=== PATIENT | female | born 1975 | race African-American/Black ===

== ENCOUNTER 2016-09-24 13:10 | Emergency (ER) | payer OTHER ==
[2016-09-24 13:14] VITALS: BP 103/48; PULSE 60; TEMP 98; BMI 38.7
--- NOTE | 2016-09-24 13:46 | PDOC ---
History of Present Illness - General Chief Complaint: Injury Stated Complaint: SWOLLEN LEGS Time Seen by Provider: 09/24/16 13:18 History Source: Patient Exam Limitations: No Limitations - History of Present Illness Initial Comments: 09/24/16 13:42 41 y/o female with c/o lower extremity edema for the past 3 days worsened by the evening hours without pain, sensory changes, shortness of breath, skin discoloration, or temperature change. Patient states is not a diabetic or history of hypertension. Patient also states has not tried any interventions including antiembolic stocking or elevation. Patient states has not had this in the past and denies any pain. Patient states did fall about 1 week ago scraping her right knee but denies any discomfort to the knee or injury to ankle Timing/Duration: intermittent Severity: mild Associated Symptoms: reports: denies symptoms Past History - Travel Traveled outside of the country in the last 30 days: No - Past Medical History Allergies/Adverse Reactions: Allergies Allergy/AdvReac Type Severity Reaction Status Date / Time No Known Allergies Allergy Verified 09/24/16 13:12 Home Medications: Ambulatory Orders Naproxen [Naprosyn -] 500 mg PO BID #14 tablet 05/26/15 Cardiac Disorders: Yes (bradycardia) GI Disorders: Yes (GERD.OBESITY.) Suicide Attempt (Hx): No - Surgical History Abdominal Surgery: Yes (RT OVARY REMOVAL/HERNIA REPAIR) - Psycho/Social/Smoking Cessation Hx Anxiety: No Suicidal Ideation: No Smoking Status: Yes Smoking History: Current every day smoker Have you smoked in the past 12 months: Yes Number of Cigarettes Smoked Daily: 5 Information on smoking cessation initiated: No 'Breaking Loose' booklet given: 04/08/15 Hx Alcohol Use: No Drug/Substance Use Hx: No Substance Use Type: None Hx Substance Use Treatment: No Patient Lives Alone: No Lives with/in: spouse/SO Review of Systems - Review of Systems Able to Perform ROS?: Yes Constitutional: No: Symptoms Reported Respiratory: No: Symptoms reported Cardiac (ROS): Yes: Edema : No: Symptoms Reported Musculoskeletal: No: Symptoms Reported Integumentary: No: Symptoms Reported Neurological: No: Symptoms reported *Physical Exam - Vital Signs Last Vital Signs Temp Pulse Resp BP Pulse Ox 98.0 F 60 18 103/48 99 09/24/16 13:11 09/24/16 13:11 09/24/16 13:11 09/24/16 13:11 09/24/16 13:11 - Physical Exam General Appearance: Yes: Nourished, Appropriately Dressed. No: Apparent Distress HEENT: negative: Pale Conjunctivae Respiratory/Chest: positive: Lungs Clear, Normal Breath Sounds. negative: Respiratory Distress, Accessory Muscle Use Cardiovascular: positive: Regular Rhythm, Regular Rate. negative: Murmur Extremity: positive: Normal Capillary Refill, Normal Range of Motion, Pedal Edema ( bilateral1+ pitting ). negative: Coldness, Calf Tenderness Integumentary: positive: Normal Color, Warm, Moist Neurologic: positive: Motor Strength 5/5 (ambulatory) Medical Decision Making - Medical Decision Making 09/24/16 13:47 Pt with c/o of BLE edema for the past 3 days worsened by evening hours. Patient exam appears to have dependent edema. Patient diet reviewed and states is high in salts with minimal water intake. I do recommend the patient to elevate her feet whenever she can, decrease her salt and increase her water intake. *DC/Admit/Observation/Transfer Diagnosis at time of Disposition: Dependent edema - Discharge Dispostion Disposition: HOME Condition at time of disposition: Good - Referrals Referrals: Wen Morataya MD [Primary Care Provider] - - Patient Instructions Printed Discharge Instructions: DI for Dependent Edema Additional Instructions: Please elevate your extremities and decrease her salt intake. Also increase her fluid intake and if symptoms continue please follow up with your primary care physician.
== END 2016-09-24 14:05 | disposition home or self-care (01) ==
LOC: JERFT 13:10
DX: R60.0 Localized edema (principal); K21.9 Gastro-esophageal reflux disease without esophagitis; E66.09 Other obesity due to excess calories; Z68.38 Body mass index [BMI] 38.0-38.9, adult
CPT/HCPCS: 99281-25

== ENCOUNTER 2017-08-03 12:25 | Emergency (ER) | payer OTHER ==
[2017-08-03 12:30] VITALS: BP 110/67; PULSE 81; TEMP 98; BMI 39.2
--- NOTE | 2017-08-03 12:47 | PDOC ---
History of Present Illness - General Chief Complaint: Sore Throat Stated Complaint: SORE THROAT Time Seen by Provider: 08/03/17 12:31 History Source: Patient Exam Limitations: No Limitations - History of Present Illness Initial Comments: 08/03/17 12:42 Best Contact: PCP: N/A Pmhx: Acid reflux Pshx: 2014: Right oophrectomy Allergies: NKDA FH: Father has tracheostomy/unk reason (61yo) Social Hx: Ciarettes/ Alcohol/ Drugs/ LMP: N/A (normal for pt) 41-year-old female presents to the ER complaining of a sore throat since she awoke this morning at approximately 0900 hrs. Pain is described as 5/10 sore constant discomfort without difficulty swallowing, fever/chills, nausea/vomiting , facial pain, rhinorrhea, nasal congestion, earaches, neck pain/stiffness, back pains, chest pain, shortness of breath, abdominal discomfort. Patient states she did not take anything for the pain. Past History - Past Medical History Allergies/Adverse Reactions: Allergies Allergy/AdvReac Type Severity Reaction Status Date / Time No Known Allergies Allergy Verified 08/03/17 12:26 Home Medications: Ambulatory Orders NK [No Known Home Medication] 09/24/16 Cardiac Disorders: Yes (bradycardia) COPD: No DVT: No GI Disorders: Yes (GERD.OBESITY.) - Surgical History Abdominal Surgery: Yes (RT OVARY REMOVAL/HERNIA REPAIR) - Suicide/Smoking/Psychosocial Hx Smoking Status: Yes Smoking History: Current every day smoker Have you smoked in the past 12 months: Yes Number of Cigarettes Smoked Daily: 5 Information on smoking cessation initiated: Yes 'Breaking Loose' booklet given: 08/03/17 Hx Alcohol Use: No Drug/Substance Use Hx: No Substance Use Type: None Hx Substance Use Treatment: No Review of Systems - Review of Systems Able to Perform ROS?: Yes Comments:: 08/03/17 12:46 CONSTITUTIONAL: Absent: fever, chills, diaphoresis, generalized weakness, malaise, loss of appetite HEENT: +Throat pain Absent: rhinorrhea, nasal congestion, throat swelling, difficulty swallowing, mouth swelling, ear pain, eye pain, visual Changes CARDIOVASCULAR: Absent: chest pain, loss of consciousness, palpitations, irregular heart rate, peripheral edema RESPIRATORY: Absent: cough, shortness of breath, dyspnea with exertion, orthopnea, wheezing, stridor, hemoptysis GASTROINTESTINAL: Absent: abdominal pain, abdominal distension, nausea, vomiting, diarrhea, constipation, melena, hematochezia GENITOURINARY: Absent: dysuria, frequency, urgency, hesitancy, hematuria, flank pain, genital pain MUSCULOSKELETAL: Absent: myalgia, arthralgia, joint swelling SKIN: Absent: rash, itching, pallor Is the patient limited Surinamese proficient: No *Physical Exam - Vital Signs Last Vital Signs Temp Pulse Resp BP Pulse Ox 98.0 F 81 18 110/67 100 08/03/17 12:27 08/03/17 12:27 08/03/17 12:27 08/03/17 12:27 08/03/17 12:27 - Physical Exam Comments: 08/03/17 12:47 GENERAL: Well developed, well nourished. Awake and alert. No acute distress. HEENT: Normocephalic, atraumatic. PERRLA, EOMI. No conjunctival pallor. Sclera are non- icteric. Moist mucous membranes. Oropharynx is clear. NECK: Supple. Full ROM. No JVD. Carotid pulses 2+ and symmetric, without bruits. No thyromegaly. No lymphadenopathy. CARDIOVASCULAR: Regular rate and rhythm. No murmurs, rubs, or gallops. Distal pulses are 2+ and symmetric. PULMONARY: No evidence of respiratory distress. Lungs clear to auscultation bilaterally. No wheezing, rales or rhonchi. ABDOMINAL: Soft. Non-tender. Non-distended. No rebound or guarding. No organomegaly. Normoactive bowel sounds. MUSCULOSKELETAL Normal range of motion at all joints. No bony deformities or tenderness. No CVA tenderness. EXTREMITIES: No cyanosis. No clubbing. No edema. No calf tenderness. SKIN: Warm and dry. Normal capillary refill. No rashes. No jaundice. Moderate Sedation - Procedure Monitoring Vital Signs: Vital Signs Temp Pulse Resp BP Pulse Ox 98.0 F 81 18 110/67 100 08/03/17 12:27 08/03/17 12:27 08/03/17 12:27 08/03/17 12:27 08/03/17 12:27 *DC/Admit/Observation/Transfer Diagnosis at time of Disposition: Strep pharyngitis - Discharge Dispostion Disposition: HOME Condition at time of disposition: Stable Decision to Admit order: No - Referrals Referrals: Danilo Ortiz MD [Staff Physician] - - Patient Instructions Printed Discharge Instructions: DI for Strep Throat Additional Instructions: Gargle salt water Tylenol alternating with Motrin as needed for pain every 6 hours Follow with the ENT surgeon as needed Amoxicillin take until completion Return back to the ER for severe/persistent or worsening symptoms - Post Discharge Activity
[2017-08-03] MEDS ORDERED: ACETAMINOPHEN INJECTION 100 ML IVPB ONE (13:17)
== END 2017-08-03 13:32 | disposition home or self-care (01) ==
LOC: JERFT 12:25
DX: J02.0 Streptococcal pharyngitis (principal); B95.0 Streptococcus, group A, as the cause of diseases classified elsewhere; K21.9 Gastro-esophageal reflux disease without esophagitis; E66.9 Obesity, unspecified; Z68.39 Body mass index [BMI] 39.0-39.9, adult; F17.210 Nicotine dependence, cigarettes, uncomplicated
CPT/HCPCS: 87070; 87077; 87430; 99281-25

== ENCOUNTER 2018-08-21 20:56 | Emergency (ER) | payer OTHER ==
[2018-08-21 21:09] VITALS: BP 119/67; PULSE 60; TEMP 98.1; BMI 37.8
[2018-08-21] MEDS ORDERED: SODIUM CHLORIDE 1,000 ML IV STA (21:14)
[2018-08-21] MEDS ORDERED: FAMOTIDINE 20 MG/50 ML IVPB 20 MG/50 ML MG IVPB ONE ×2 (21:14→21:24)
--- NOTE | 2018-08-21 21:14 | PDOC ---
History of Present Illness - General History Source: Patient Exam Limitations: No Limitations - History of Present Illness Initial Comments: 08/21/18 21:17 42YOF with h/o GERD and oophorectomy who p/w one week of constant 6/10 epigastric pain radiating to the LUQ and left shoulder, which is unrelieved with Ranitidine which was prescribed by her PCP shortly after the onset. It gets worse about 15 minutes after she eats (last ate at 7:30 pm). She notes she was supposed to take it twice a day but she has only been taking it once a day. She has not tried any other medications for the pain. She denies f/c/n/v/d, does not feel constipated but has not had a bowel movement in 2 days. No black/ white/bloody bowel movements, no dysuria or vaginal bleeding or discharge, no menstrual period for the past 2 years and denies any chance of being though does not use any form of control. <Jennie Horton - Last Filed: 08/21/18 23:02> <Benjamin Bose - Last Filed: 08/22/18 00:20> - General Stated Complaint: ACID REFLEX Time Seen by Provider: 08/21/18 21:07 Past History - Past Medical History Cardiac Disorders: Yes (bradycardia) COPD: No DVT: No GI Disorders: Yes (GERD.OBESITY.) - Surgical History Abdominal Surgery: Yes (RT OVARY REMOVAL/HERNIA REPAIR) - Suicide/Smoking/Psychosocial Hx Smoking Status: Yes Smoking History: Current every day smoker Have you smoked in the past 12 months: Yes Number of Cigarettes Smoked Daily: 5 'Breaking Loose' booklet given: 08/03/17 Hx Alcohol Use: No Drug/Substance Use Hx: No Substance Use Type: None Hx Substance Use Treatment: No <Jennie Horton - Last Filed: 08/21/18 23:02> <Benjamin Bose - Last Filed: 08/22/18 00:20> - Past Medical History Allergies/Adverse Reactions: Allergies Allergy/AdvReac Type Severity Reaction Status Date / Time No Known Allergies Allergy Verified 08/03/17 12:26 Home Medications: Ambulatory Orders Ranitidine HCl [Zantac] 150 mg PO BID 08/21/18 Review of Systems - Review of Systems Able to Perform ROS?: Yes Comments:: 08/21/18 21:31 GEN: no fever, chills, malaise, generalized weakness, or weight change HEENT: no ear pain, sore throat, vision change, or eye pain CV: left chest pain, no palpitations, lightheadedness, syncope, or edema RESP: no cough, wheezing, or SOB GI: abdominal pain, no nausea, vomiting, diarrhea, constipation, or white/black /bloody stool : no dysuria, hematuria, incontinence, retention, bleeding, or discharge MSK: no neck/back pain, muscle weakness/pain, or joint swelling/pain NEURO: no headache, seizure, vertigo, numbness, tingling, or focal weakness PSYCH: no substance use, no behavior change SKIN: no jaundice, no rash ROS otherwise negative except as noted in HPI <Horton,Jennie - Last Filed: 08/21/18 23:02> *Physical Exam - Vital Signs Initial Vital Signs Temp Pulse Resp BP Pulse Ox 98.1 F 60 18 119/67 100 08/21/18 21:07 08/21/18 21:07 08/21/18 21:07 08/21/18 21:07 08/21/18 21:07 - Physical Exam Comments: 08/21/18 21:35 GENERAL: well-appearing, A/Ox4, no distress, answers questions appropriately, daughter at bedside HEENT: PERRLA, EOMI, moist mucous membranes NECK/BACK: no midline ttp, no spinal stepoff or deformity, no hematoma, full ROM , neck supple CARDIOVASCULAR: regular rate/rhythm, normal S1S2, no MGR, strong peripheral pulses, capillary refill <2 seconds, extremities wwp, no edema LUNGS/RESPIRATORY: no respiratory distress, CTAB GI/ABDOMEN: symmetric [id number], normoactive BS, soft, mild epigastric ttp, no midline pulsatile masses, negative Herrera's sign : no CVA tenderness EXTREMITIES: no muscle atrophy, no acute deformity SKIN: warm and dry, no pallor, no jaundice, no rash, no bruising, no skin breakdown, no cuts, no lesions NEUROLOGICAL: GCS 15, CN II-XII grossly intact, 5/5 strength proximally and distally, no facial droop <Horton,Jennie - Last Filed: 08/21/18 23:02> - Vital Signs Last Vital Signs Temp Pulse Resp BP Pulse Ox 98.1 F 60 18 119/67 100 08/21/18 21:07 08/21/18 21:07 08/21/18 21:07 08/21/18 21:07 08/21/18 21:07 <Benjamin Bose - Last Filed: 08/22/18 00:20> Procedures - Bedside Ultrasound Remarks: STUDY: RUQ/gallbladder INDICATION: epigastric pain FINDINGS: no GB distention, wall thickening, sludge/stones, or pericholecystic fluid, or CBD dilation. CONCLUSION: normal GB ultrasound. <Jennie Horton - Last Filed: 08/21/18 23:02> ED Treatment Course - LABORATORY CBC & Chemistry Diagram: 08/21/18 21:17 08/21/18 21:17 <Jennie Horton - Last Filed: 08/21/18 23:02> - LABORATORY CBC & Chemistry Diagram: 08/21/18 21:17 08/21/18 21:17 - ADDITIONAL ORDERS Additional order review: Laboratory Results 08/21/18 08/21/18 21:17 21:17 Sodium 144 Potassium 4.0 Chloride 110 H Carbon Dioxide 28 Anion Gap 6 L BUN 14.2 Creatinine 1.1 Est GFR (CKD-EPI)AfAm 71.71 Est GFR (CKD-EPI)NonAf 61.88 Random Glucose 94 Calcium 8.9 Total Bilirubin 0.2 AST 16 ALT 20 Alkaline Phosphatase 111 Troponin I < 0.02 Total Protein 7.0 Albumin 3.7 Lipase 141 Serum , Qual Negative 08/21/18 21:17 RBC 4.69 MCV 88.6 MCHC 33.7 RDW 14.4 MPV 11.1 Neutrophils % 60.4 Lymphocytes % 31.3 Monocytes % 5.6 Eosinophils % 2.3 Basophils % 0.4 08/22/18 00:19 Patient Information: : 1975 Order Type: Preliminary Name: CRYSTALALEXY MAYNARD Sex: F Study Description: US ABDOMEN LIMITED Modality: US Location: [facility] Referring Physician: WILL CODY Comments: Oseas Saini MD wrote on Aug 21, 2018 at 11:46 PM: Referring Physician: WILL CODY Patient Name: CAESAR CRYSTAL THIS IS A PRELIMINARY REPORT FROM [facility] AD[facility] DATE OF SERVICE: 2018-08-21 23:04:05 IMAGES: 45 EXAM: Ultrasound abdomen right upper quadrant HISTORY: Right upper quadrant and epigastric pain COMPARISON: None. FINDINGS: The liver is enlarged measuring 17.8 cm in sagittal length. There is mild increased echotexture compatible with steatosis and no intrahepatic biliary dilatation. No hepatic masses. Portal and hepatic veins patent The common bile duct is within normal limits measuring 4.3 mm No stones or sludge seen in the gallbladder. Gallbladder wall is normal in thickness measuring 2 CONFIDENTIALITY NOTICE: This information is intended only for the use of the recipient(s) named above. If you are not the intended recipient, or a person responsible for delivering it to the intended recipient, you are hereby notified that any disclosure, copying, distribution or use of any of the information contained in or attached to this transmission is STRICTLY PROHIBITED. If you have received this transmission in error, please immediately notify Imaging Departmental Shipping Clerk and destroy the original transmission and its attachments without saving them in any manner [address] [facility] [address] [place] [address] Phone: [phone]) Fax: Email: [email or web address]: [email or web address] Patient Information: : 1975 Order Type: Preliminary Name: CRYSTAL MAYNARD Sex: F Study Description: US ABDOMEN LIMITED Modality: US Location: [facility] Referring Physician: WILL CODY mm. No pericholecystic fluid The pancreas is normal in size with homogeneous echotexture. The tail is obscured by overlying bowel gas The right kidney is unremarkable Visualized portions of the abdominal aorta and IVC are unremarkable THIS DOCUMENT HAS BEEN ELECTRONICALLY SIGNED Oseas Saini MD 08/21/2018 23:45 [place] M[place]. Please call Imaging Departmental Shipping Clerk [phone] ([phone]) with questions. Oseas Saini MD Clinicians - Please contact Imaging Departmental Shipping Clerk with further questions at 1 - Medications Given in the ED: ED Medications Discontinued Medications Generic Name Dose Route Start Last Admin Trade Name Freq PRN Reason Stop Dose Admin Acetaminophen 1,000 mg 08/21/18 23:02 08/21/18 23:02 Ofirmev Injection - IVPB 08/21/18 23:03 1,000 mg ONCE ONE Administration Al Hydroxide/Mg Hydroxide 30 ml 08/21/18 21:15 08/21/18 21:23 Mylanta Oral Suspension - PO 08/21/18 21:16 30 ml ONCE ONE Administration Famotidine/Sodium Chloride 20 mg in 50 mls @ 100 mls/hr 08/21/18 21:14 21:43 Pepcid 20 Mg Premixed Ivpb - IVPB 08/21/18 21:43 100 mls/hr ONCE ONE Administration Sodium Chloride 1,000 mls @ 1,000 mls/hr 08/21/18 21:14 08/21/18 21:43 Normal Saline - IV 08/21/18 22:13 1,000 mls/hr ASDIR STA Administration Lidocaine HCl 20 ml 08/21/18 21:15 08/21/18 21:23 Xylocaine 2% Viscous Oral - MM 08/21/18 21:16 20 ml ONCE ONE Administration <Benjamin Bose - Last Filed: 08/22/18 00:20> Medical Decision Making - Medical Decision Making 08/21/18 21:36 42YOF with h/o GERD who p/w 1 week of 10 epigastric abdominal pain. Initial Vital Signs Temp Pulse Resp BP Pulse Ox 98.1 F 60 18 119/67 100 08/21/18 21:07 08/21/18 21:07 08/21/18 21:07 08/21/18 21:07 08/21/18 21:07 Exam: As noted in Physical Exam section. DDX IBNLT: gastritis, PUD, cholecystitis, choledocholithiasis, cholangitis, pancreatitis, unlikely to be any other serious etiology such as appendicitis, colitis, AAA/AD, ACS, renal stone, SBO, mesenteric/bowel ischemia, bowel perforation, constipation, gas, etc W/U ordered: CBCD CMP Mg Phos Lipase Lactate Troponin CK CKMB EKG CXR RUQ US TX ordered: Pepcid Maalox Viscous Lido and IVF If suspect cholecystitis, start with NSAIDs and avoid opioids as these cause sphincter of Oddi spasm. EKG: Reviewed; results as noted in ECG Review section. CXR: US: Labs: Reassessment: Repeat VS: DISCHARGE The Pt has gotten significant relief of symptoms while in the ED. Workup is not concerning for emergency-level pathology at this time. They are appropriate for discharge with close outpatient follow up. They are comfortable with this plan and will follow up with their primary care provider in 1-3 days. Referral information is also given for GI provider in case sxs do not resolve. They will take Motrin and/or Tylenol for pain. Specific return precautions are discussed and they will come back to the ER if necessary. <Jennie Horton - Last Filed: 08/21/18 23:02> *DC/Admit/Observation/Transfer - Discharge Dispostion Decision to Admit order: No <Jennie Horton - Last Filed: 08/21/18 23:02> <Shayne Boseson - Last Filed: 08/22/18 00:20> Diagnosis at time of Disposition: Epigastric pain - Discharge Dispostion Condition at time of disposition: Stable - Patient Instructions Printed Discharge Instructions: DI for Abdominal Pain-Adult Additional Instructions: You were seen in the ER for upper abdominal pain. We did lab work on your blood and urine and found no abnormalities. We took an electrocardiogram which showed no concerning findings on your heart activity. We did a chest x-ray which was also normal. We did an abdominal ultrasound which was also normal. After our assessment, we do not believe you are having a medical emergency at this time, and we believe you are safe to go home. Please take the ranitidine you have been prescribed exactly as instructed - you stated this was prescribed twice a day, and if that's the case it's important that you try that to control the stomach acid. If you need additional acid control, you can try antacid such as Tums or Maalox. Please also follow up with your primary care provider in 1-3 days. Please come back to the ER at any time, 24 hours a day, for any new or worsening symptoms, like worsened abdominal pain, fever, inability to have a bowel movement or pass gas, chest pain, palpitations, or other symptoms. If you are having severe or life threatening symptoms, or symptoms that make it unsafe to drive or have someone drive you, please call 911.
[2018-08-21] MEDS ORDERED: LIDOCAINE VISCOUS 2% ORAL/TOP 20 ML UNIT-DOSE CUP MM ONE (21:15)
[2018-08-21] MEDS ORDERED: MAG HYDROX/AL HYDROX/SIMETH 30 ML UNIT-DOSE CUP PO ONE (21:15)
[2018-08-21] MEDS ORDERED: LIDOCAINE VISCOUS 2% ORAL/TOP 20 ML UNIT-DOSE CUP ONE (21:21)
[2018-08-21] MEDS ORDERED: MAG HYDROX/AL HYDROX/SIMETH 30 ML UNIT-DOSE CUP ONE (21:22)
[2018-08-21 21:39] LABS: BASO % 0.4 % (0-2.0); EOS % 2.3 % (0-4.5); HEMATOCRIT 41.6 % (32.4-45.2); LYMPH % 31.3 % (8-40); MCH 29.9 pg (25.7-33.7); MCHC 33.7 g/dl (32.0-36.0); MEAN CELL VOLUME 88.6 fl (80-96); MEAN PLT VOLUME 11.1 fl (7.5-11.1); MONO % 5.6 % (3.8-10.2); NEUT % 60.4 % (42.8-82.8); RBC 4.69 M/mm3 (3.60-5.2); RDW 14.4 % (11.6-15.6)
--- NOTE | 2018-08-21 22:07 | PDOC ---
Documentation entered by Tania Swain SCRIBE, acting as scribe for Magaly Chavez MD. Magaly Chavez MD: This documentation has been prepared by the Wiliam ferrell Nirvannie, SCRIBE, under my direction and personally reviewed by me in its entirety. I confirm that the documentation accurately reflects all work, treatment, procedures, and medical decision making performed by me. Attending Attestation - Resident Resident Name: HortonJennie - ED Attending Attestation I have performed the following: I have examined & evaluated the patient, The case was reviewed & discussed with the resident, I agree w/resident's findings & plan - HPI HPI: 08/21/18 21:47 The patient is a 42 year old female, with a significant past medical history of GERD and oophorectomy, who presents to the emergency department with, 1 week constant epigastric pain with radiation to the left shoulder, LUQ, and rated 6/ 10 onsetting approx. 15 min after eating. She denies recent fevers, chills, headache or dizziness. She denies recent nausea, vomit, diarrhea or constipation. She denies recent dysuria, frequency, urgency or hematuria. She denies recent chest pain or shortness of breath. Allergies: NKDA - Physicial Exam PE: 08/21/18 22:07 GENERAL: Well-appearing, well-nourished. No apparent distress. HEENT: Normocephalic, atraumatic. PERRL, EOM intact. CARDIOVASCULAR: Normal S1, S2. Regular rate and rhythm. PULMONARY: Clear to auscultation bilaterally. ABDOMEN: Soft, non-distended, non-tender. EXTREMITIES: Normal ROM in all four extremities. No gross deformities. SKIN: Warm, dry. No rash NEUROLOGICAL: No focal neurological deficits. - Medical Decision Making 08/21/18 22:52 she has had this pain since July and received a prescription for ranitidine on August 02 for symptoms of acid reflex ekg nsr@ 64 bpm ,no ischemia, no LVH 08/21/18 23:09 labs are unremarkable,normal lfts .lipase , negative troponin 08/22/18 00:11 abdominal US normal gallbladder,pancreas unremarkable 08/22/18 00:22 imp acid reflex/gerd/pud RX PPI sent to her pharmacy w GI referral
[2018-08-21 22:20] LABS: PLATELET COUNT 114 K/MM3 (134-434); PLATELET ESTIMATE DECREASED
[2018-08-21 22:34] LABS: ALBUMIN 3.7 g/dl (3.4-5.0); ALK PHOS 111 U/L (45-117); ANION GAP 6 MMOL/L (8-16); BILIRUBIN,TOTAL 0.2 mg/dL (0.2-1); BLOOD UREA NITROGEN 14.2 mg/dL (7-18); CALCIUM 8.9 mg/dL (8.5-10.1); CHLORIDE 110 mmol/L (98-107); CO2 28 mmol/L (21-32); CREATININE 1.1 mg/dL (0.55-1.3); GLUCOSE,RANDOM 94 mg/dL (74-106); LIPASE 141 U/L (73-393); SGOT/AST 16 U/L (15-37); SGPT/ALT 20 U/L (13-61); SODIUM 144 mmol/L (136-145)
[2018-08-21] MEDS ORDERED: ACETAMINOPHEN INJECTION 100 ML IVPB ONE (22:48)
[2018-08-21] MEDS ORDERED: ACETAMINOPHEN 1000 MG/100 ML VIAL (NON FORMULARY) IVPB ONE (23:02)
[2018-08-22 00:44] LABS: PH,URINE 6.5 (5.0-8.0); URINE APPEARANCE CLEAR; URINE BILIRUBIN NEGATIVE (NEGATIVE); URINE COLOR YELLOW; URINE GLUCOSE (UA) NEGATIVE (NEGATIVE); URINE KETONE NEGATIVE (NEGATIVE); URINE LEUK ESTERASE NEGATIVE (NEGATIVE); URINE NITRITE NEGATIVE (NEGATIVE); URINE PROTEIN NEGATIVE (NEGATIVE)
--- NOTE | 2018-08-22 11:39 | EKG ---
Test Reason : Blood Pressure : / mmHG Vent. Rate : 064 BPM Atrial Rate : 064 BPM P-R Int : 190 ms QRS Dur : 072 ms QT Int : 410 ms P-R-T Axes : 050 027 039 degrees QTc Int : 422 ms NORMAL SINUS RHYTHM WITH SINUS ARRHYTHMIA NORMAL ECG WHEN COMPARED WITH ECG OF 08-APR-2015 20:03, NO SIGNIFICANT CHANGE WAS FOUND Confirmed by TIM CHUNG MD ([id number]) on 08/22/2018 11:39:08 AM Referred By: Confirmed By:TIM CHUNG MD
== END 2018-08-22 00:40 | disposition home or self-care (01) ==
LOC: JER 20:56
PROC: 3E033GC Introduction of Other Therapeutic Substance into Peripheral Vein, Percutaneous Approach (ICD-10-PCS; principal; 2018-08-21)
PROC: 3E033NZ Introduction of Analgesics, Hypnotics, Sedatives into Peripheral Vein, Percutaneous Approach (ICD-10-PCS; 2018-08-21)
DX: K21.9 Gastro-esophageal reflux disease without esophagitis (principal)
CPT/HCPCS: 36415; 76705-TC; 80053; 81003; 83690; 84484; 84703; 85025; 87086; 93005; 93010; 96365; 96375; 99283-25; J0131; J7030

== ENCOUNTER 2020-06-26 08:43 | Emergency (ER) | payer OTHER ==
[2020-06-26 08:51] VITALS: BP 113/68; PULSE 79; TEMP 98.3; BMI 34.7
== END 2020-06-26 10:00 | disposition home or self-care (01) ==
LOC: JER 08:43
DX: H60.502 Unspecified acute noninfective otitis externa, left ear (principal)
CPT/HCPCS: 99282-25

== ENCOUNTER 2020-10-11 08:17 | Emergency (ER) | payer OTHER ==
[2020-10-11 08:50] VITALS: BP 113/79; PULSE 55; TEMP 98.1; BMI 37.8
[2020-10-11] MEDS ORDERED: METHOCARBAMOL 500 MG TABLET PO ONE (09:01)
[2020-10-11] MEDS ORDERED: KETOROLAC TROMETHAMINE 30 MG/1 ML VIAL IM ONE (09:01)
[2020-10-11] MEDS ORDERED: METHOCARBAMOL 500 MG TABLET ONE (09:10)
[2020-10-11] MEDS ORDERED: KETOROLAC TROMETHAMINE 30 MG/1 ML VIAL ONE (09:11)
== END 2020-10-11 09:12 | disposition home or self-care (01) ==
LOC: JER 08:17 → JERFT 08:17
PROC: 3E0233Z Introduction of Anti-inflammatory into Muscle, Percutaneous Approach (ICD-10-PCS; principal; 2020-10-11)
DX: M54.9 Dorsalgia, unspecified (principal); M25.511 Pain in right shoulder; W01.0XXA Fall on same level from slipping, tripping and stumbling without subsequent striking against object, initial encounter
CPT/HCPCS: 99284-25

== ENCOUNTER 2020-10-24 13:29 | Emergency (ER) | payer OTHER ==
[2020-10-24 13:38] VITALS: BP 124/85; PULSE 61; TEMP 97.9; BMI 39.2
[2020-10-24] MEDS ORDERED: KETOROLAC TROMETHAMINE 30 MG/1 ML VIAL IM ONE (13:55)
[2020-10-24] MEDS ORDERED: KETOROLAC TROMETHAMINE 30 MG/1 ML VIAL ONE (14:00)
== END 2020-10-24 14:18 | disposition home or self-care (01) ==
LOC: JERFT 13:29
PROC: 3E0233Z Introduction of Anti-inflammatory into Muscle, Percutaneous Approach (ICD-10-PCS; principal; 2020-10-24)
DX: S46.911D Strain of unspecified muscle, fascia and tendon at shoulder and upper arm level, right arm, subsequent encounter (principal)
CPT/HCPCS: 99283-25

== ENCOUNTER 2020-12-11 09:13 | Emergency (ER) | payer OTHER ==
[2020-12-11 09:33] VITALS: BP 109/75; PULSE 99; TEMP 99; BMI 38.7
[2020-12-11] MEDS ORDERED: SODIUM CHLORIDE 0.9% 500 ML INFUS.BAG IV ONE (11:21)
== END 2020-12-11 12:32 | disposition left against medical advice (07) ==
LOC: JER 09:13
DX: R19.7 Diarrhea, unspecified (principal)
CPT/HCPCS: 99283-25

== ENCOUNTER 2022-01-28 08:53 | Emergency (ER) | payer OTHER ==
[2022-01-28 09:01] VITALS: BP 105/72; PULSE 58; RESP 18; TEMP 98; BMI 35.5
== END 2022-01-28 09:45 | disposition home or self-care (01) ==
LOC: JER 08:53
DX: H66.001 Acute suppurative otitis media without spontaneous rupture of ear drum, right ear (principal); H92.01 Otalgia, right ear
CPT/HCPCS: 99281-25

== ENCOUNTER 2024-07-26 11:44 | Emergency (ER) | payer OTHER ==
[2024-07-26 11:54] VITALS: BP 102/44; PULSE 63; RESP 20; TEMP 97.3; BMI 38.7
[2024-07-26] MEDS ORDERED: KETOROLAC TROMETHAMINE 30 MG/1 ML VIAL ONE (12:44)
[2024-07-26] MEDS: KETOROLAC TROMETHAMINE 30 MG/1 ML VIAL IM ONE (12:49)
== END 2024-07-26 13:07 | disposition home or self-care (01) ==
LOC: JERFT 11:44
PROC: 3E0233Z Introduction of Anti-inflammatory into Muscle, Percutaneous Approach (ICD-10-PCS; principal; 2024-07-26)
DX: M79.672 Pain in left foot (principal); M79.2 Neuralgia and neuritis, unspecified; R20.0 Anesthesia of skin; R20.2 Paresthesia of skin; R26.89 Other abnormalities of gait and mobility; M79.89 Other specified soft tissue disorders
CPT/HCPCS: 99284-25